=== PATIENT | female | born 2000 | race African-American/Black ===

== ENCOUNTER 2022-01-14 21:41 | Emergency (ER) | payer BC, MEDICAID, SELFPAY ==
[2022-01-14] VITALS (10 sets, daily range): BP systolic 104–114; BP diastolic 61–72; PULSE 71–101; RESP 13–27; TEMP 36.9; O2SAT 99–100
--- NOTE | 2022-01-14 21:46 | ECG_ITS ---
Measurements Intervals [place] Rate: 95 P: 79 WI: 127 QRS: 63 QRSD: 77 T: 47 QT: 332 QTc: 418 Interpretive Statements SINUS RHYTHM POSSIBLE LEFT ATRIAL ENLARGEMENT [-0.1mV P WAVE IN V1/V2] NO PREVIOUS ECG AVAILABLE FOR COMPARISON Electronically Signed On 01-15-2022 13:39:19 CDT by Catherine Lugo M.D.
--- NOTE | 2022-01-14 23:52 | ED.ARRPALP ---
HPI - Arrhythmia/Palpitations General Chief Complaint: Arrhythmia/Palpitations Stated Complaint: heart palpitations Time Seen by Provider: 01/14/22 23:29 Source: patient Mode of arrival: ambulatory History of Present Illness HPI narrative: 21-year-old female presents today with complaints of feeling her heart racing that started when she woke up this morning. Patient states she has a history of anxiety and has had palpitations in the past which normally only happen at night. Patient denies any chest pain, shortness of breath, pain radiating to the jaw or down the arm. Patient currently in school and finals are coming up next week. Patient denies any alleviating or aggravating factors when it comes to the feeling heart racing. Patient has been eating and drinking fairly well. Was seen last week at the [facility] doctors office and told she had a viral infection. She has been taking Flonase and TheraFlu as needed. Denies any usage of Sudafed. Related Data Allergies Allergy/AdvReac Type Severity Reaction Status Date / Time cefdinir Allergy Nausea and Verified 01/14/22 22:01 Vomiting Review of Systems Review of Systems: CONSTITUTIONAL: Denies fever, chills, or sweats. EYES: Denies visual changes, redness, or discharge. ENT: Denies rhinorrhea, congestion, sore throat, or otalgia. CARDIOVASCULAR: Feels her heart is racing. Denies chest pain or edema. RESPIRATORY: Denies cough or dyspnea. GASTROINTESTINAL: Denies abdominal pain, nausea, vomiting, or diarrhea. GENITOURINARY: Denies dysuria or hematuria. SKIN: Denies rash or itching. MUSCULOSKELETAL: Denies back pain, joint pain, or myalgia. NEUROLOGIC: Denies headache, numbness, dizziness, or weakness. PSYCHIATRIC: Denies anxiety or depression. Exam Narrative: GENERAL: Well-appearing, well-nourished, and in no acute distress. HEAD: Normocephalic, atraumatic. EYES: PERRLA and EOMI. ENT: Nares clear, no rhinorrhea or epistaxis. Mucous membranes moist. Oropharynx without tonsillar hypertrophy exudate or other lesions. Bilateral TMs pearly ramírez nonbulging NECK: Supple. No adenopathy or masses. No carotid bruits or JVD CHEST: Clear to auscultation. No respiratory distress. No wheezes rales or rhonchi HEART: Regular rate and rhythm. No murmur heard. Normal peripheral pulses. ABDOMEN: Soft, nontender, nondistended, normal active bowel sounds. EXTREMITIES: Normal range of motion. No edema. SKIN: Warm, dry, no rash. NEURO: No focal deficits. Alert and oriented x3. PSYCH: Normal mood and affect. Course Course Emergency Course: HPI as noted. Patient denies any pain or shortness of breath. Patient does have a history of anxiety. Will medicate with hydroxyzine and reevaluate patient. EKG shows sinus tachycardia. Reevaluation(s) Reevaluation #1: Patient with noted improvement after being medicated. Patient states she feels better and would like to go home. Date: 01/15/22 Time: 01:15 Vital Signs Vital signs: Vital Signs Temperature 36.9 C 01/14/22 21:58 Pulse Rate 101 H 01/14/22 21:58 Respiratory Rate 18 01/14/22 21:58 Blood Pressure 112/61 01/14/22 21:58 Pulse Oximetry 100 01/14/22 21:58 Temperature 36.9 C 01/14/22 21:58 Pulse Rate 72 01/15/22 01:48 Respiratory Rate 16 01/15/22 01:48 Blood Pressure 110/65 01/15/22 01:48 Pulse Oximetry 100 01/15/22 01:48 MDM - Arrhythmia/Palpitations MDM Narrative Medical decision making narrative: HPI as noted. Patient with noted improvement after being medicated. Patient with history of anxiety and meds have not been increased for over a year. Patient discharged home diagnosis anxiety plan follow-up with primary to reevaluate medications. Patient aware to return with any new or emergent symptoms. Differential Diagnosis Differential diagnosis: Likely palpitations, anxiety and sinus tachycardia Discharge Plan Discharge Clinical Impression: Anxiety Patient Disposition: Home, Self-Care Condition
[2022-01-15] VITALS (8 sets, daily range): BP systolic 104–113; BP diastolic 61–68; PULSE 72–83; RESP 13–21; O2SAT 95–100
[2022-01-15] MEDS: hydrOXYzine HCL 25 MG TABLET PO (00:10)
== END 2022-01-15 01:50 | disposition home or self-care (01) ==
PROVIDERS: Emergency Provider Nurse Practitioner Family
DX: F41.9 Anxiety disorder, unspecified (principal); R94.31 Abnormal electrocardiogram [ECG] [EKG]
CPT/HCPCS: 93005; 99283; A9270

== ENCOUNTER 2022-10-28 18:30 | Emergency (ER) | payer BC, MEDICAID, SELFPAY ==
--- NOTE | ~2022-10-28 | CT_ITS ---
EXAMINATION: CT abdomen pelvis wo con DATE: 10/28/2022 20:14 INDICATION: Right lower quadrant abdominal pain and intermittent nausea TECHNIQUE: Computed tomography (CT) of the abdomen and pelvis was performed without intravenous contr ast. Automated exposure control and iterative reconstruction technique were employed. The dose-length product was 224.64 mGy-cm. COMPARISON: None FINDINGS: Lung bases are clear. Heart size is normal. No pericardial or pleural effusion. Cholecystectomy clips the gallbladder fossa. Liver, spleen, pancreas, bilateral adrenal glands and kidneys are normal. Mod erate to large amount stool throughout the colon. Bowels appear normal with no abnormal wall thickeni ng or obstruction. The appendix is not visualized. No pericecal inflammatory change to suggest acute appendicitis. Bladder, anteverted uterus and bilateral adnexa are unremarkable. Minimal likely physi ologic free fluid in the cul-de-sac. Several phleboliths in the pelvis. Mild thoracolumbar dextrocurv ature. IMPRESSION: 1. Minimal likely physiologic free fluid in the pelvis. No other acute intra-abdominal/pelvic process . Reviewed, dictated and finalized at location A. RNING OFFICER IMPRESSION: 1. Minimal likely physiologic free fluid in the pelvis. No other acute intra-ab dominal/pelvic process.
[2022-10-28 18:57] VITALS: BP 142/71; PULSE 102; RESP 14; TEMP 36.3; O2SAT 98
[2022-10-28 19:32] LABS: Appearance Urine Clear (Clear); Bilirubin Urine Negative (Negative); Blood Urine Negative (Negative); Color Urine Yellow (Yellow); Glucose Urine UA Negative (Negative); Ketones Urine Negative (Negative); Leukocyte Esterase Ur Negative LEU/UL (Negative); Nitrate Urine Negative (Negative); Protein Urine Negative (Negative); Urobilinogen Urine 0.2 mg/dL (<2.0)
[2022-10-28 19:42] LABS: Bacteria Urine Trace /hpf; Mucus Urine Rare /lpf; Squamous Epithelial Cell Urine Moderate /hpf (Few); WBC Urine 0-3 /hpf
[2022-10-28 19:50] LABS: Add Urine Microscopic? YES
--- NOTE | 2022-10-28 19:50 | ED.GENADULT ---
HPI - General Adult General Chief complaint: Abdominal Pain Stated complaint: Abdominal pain Time Seen by Provider: 10/28/22 19:07 History of Present Illness HPI narrative: this is a 22-year-old female with a history of presenting to ED with right lower quadrant pain. The pain started at 3:00 a.m. and woke her from sleep. It is a stabbing pain in the right lower quadrant that radiates through her pelvic area, it was originally 10/10 in intensity and is now 6 out 10 intensity. She has not taken any pain medication. The pain is always there but its intensity waxes and wanes. She says this is felt like when she has had endometriosis flares in the past that she has not had 1 since she had an ablation was placed on Depo-Provera. The pain is worse with movement. She says that she has had some nausea but no fever, chills or diarrhea. Her gallbladder has been removed. She is not sexually active. She has a history of ovarian cysts in the past. Related Data Allergies Allergy/AdvReac Type Severity Reaction Status Date / Time cefdinir Allergy Nausea and Verified 01/14/22 22:01 Vomiting [facility] Past Medical History Medical History (Updated 10/28/22 @ 21:32 by Marvel Burgos MD) Endometriosis Ovarian cyst Surgical History Surgical History (Updated 10/28/22 @ 19:52 by Marvel Burgos MD) History of cholecystectomy Social History Social History (Updated 10/28/22 @ 19:52 by Marvel Burgos MD) Social History: Denies drugs tobacco or alcohol Exam Narrative: APPEARANCE: No apparent distress. Head: atraumatic. EYES: EOMI, NOSE: Atraumatic NECK: Trachea midline RESPIRATORY: No increased rate of breathing clear to auscultation bilaterally CARDIOVASCULAR: RRR, ABDOMINAL: mild tenderness in the right lower quadrant but no guarding or rebound. Abdomen is not distended. no CVA tenderness MUSCULOSKELETAl: No obvious deformities NEURO: Alert. Moving 4/4 extremities SKIN:: Warm, dry. Normal color PSYCHIATRIC: Normal affect Course Vital Signs Vital signs: Vital Signs Temperature 97.4 F L 10/28/22 18:57 Pulse Rate 102 H 10/28/22 18:57 Respiratory Rate 14 10/28/22 18:57 Blood Pressure 142/71 H 10/28/22 18:57 Pulse Oximetry 98 02/23 18:57 Oxygen Delivery Room Air 10/28/22 18:57 Temperature 97.4 F L 10/28/22 18:57 Pulse Rate 102 H 10/28/22 18:57 Respiratory Rate 14 10/28/22 18:57 Blood Pressure 142/71 H 10/28/22 18:57 Pulse Oximetry 98 10/28/22 18:57 Oxygen Delivery Room Air 10/28/22 18:57 Medical Decision Making [facility] Narrative Medical decision making narrative: -Presentation: 22-year-old female with history of ovarian cyst and endometriosis presenting to ED with right lower quadrant abdominal pain. CT abdomen pelvis without contrast has been ordered, lab work urinalysis will be obtained. -DDX includes but is not limited to: appendicitis, ovarian cyst, endometriosis, kidney stone, urinary tract infection, functional abdominal pain -Co-morbidities complicating care: history of ovarian cyst, endometriosis, multiple surgeries on the abdomen , iodine allergy -Social determinants of health: patient is in college -External Chart Review: non -Hx from independent Sources: Chase stephens, -Discussion of Management/Consultants: none -Independent interpretation of studies: CBC was within normal limits. Metabolic panel was unremarkable. Urinalysis did not indicate infection. CT abdomen pelvis showed no sign of appendicitis. There was some physiologic free fluid in the belly Which could be due to a ruptured cyst or endometriosis. Dx tests considered but not ordered: none -Procedures: None -Interventions: 2 L normal saline, 1000 mg Tylenol, 800 mg Motrin, 4 mg IV Zofran -Shared decision making / Disposition: after re-evaluating the patient her pain has slightly improved although she said she was having issues swallowing the 500 mg Tylenol pi
[2022-10-28] MEDS: IBUPROFEN 400 MG TABLET 800 MG PO (19:58)
[2022-10-28] MEDS: ACETAMINOPHEN 500 MG TABLET 1000 MG PO (19:58)
[2022-10-28 20:04] LABS: Basophils Absolute Auto 0.1 K/mm3 (0.0-0.1); Basophils Percent Auto 0.5 % (0.2-1.2); Eosinophils Absolute Auto 0.1 K/mm3 (0-0.3); Eosinophils Percent Auto 1.1 % (0-4.4); Hematocrit 38.5 % (37.0-47.0); Hemoglobin 12.5 g/dL (12.0-15.0); Immature Granulocyte Absolute 0.02 K/mm3 (0.00-0.031); Immature Granulocyte Percent A 0.2 % (0-0.5); Lymphocytes Absolute Auto 2.86 K/mm3 (0.9-3.2); Lymphocytes Percent Auto 31.2 % (18.3-44.2); Mean Corpuscular HGB Conc 32.5 g/dl (32-36); Mean Corpuscular Hemoglobin 27.2 pg (26-34); Mean Corpuscular Volume 83.9 fl (80-100); Mean Platelet Volume 9.5 fl (7.4-10.4); Monocytes Absolute Auto 0.7 K/mm3 (0.1-0.6); Monocytes Percent Auto 7.1 % (2.6-8.5); Neutrophils Absolute Auto 5.5 K/mm3 (1.3-6.7); Neutrophils Percent Auto 59.9 % (45.5-73.1); Nucleated Red Blood Cells Perc 0.2 % (0.0-0.2); Platelet Count Result 250 k/mm3 (150-375); Red Blood Count 4.59 M/mm3 (4.2-5.4); Red Cell Distribution Width 13.7 % (11.5-14.5); White Blood Count 9.2 K/mm3 (4.5-10.0)
[2022-10-28 20:18] LABS: Alanine Aminotransferase 34 U/L (6-35); Albumin Level 4.6 g/dL (3.5-5.1); Alkaline Phosphatase 51 U/L (38-126); Anion Gap 7 mmol/L (8-16); Aspartate Amino Transferase 31 U/L (14-36); Bilirubin,Total 0.6 mg/dL (0.2-1.3); Blood Urea Nitrogen 14 mg/dL (7-17); Carbon Dioxide 25 mmol/L (22-30); Chloride 104 mmol/L (98-107); Estimated CRCL calculation 82 ml/min; Estimated Glomerular Filt Rate > 60; Glucose 100 mg/dL (65-110); Lipase 54 U/L (23-300); Magnesium 1.8 mg/dL (1.6-2.3); Potassium 3.6 mmol/L (3.4-5.0); Sodium 136 mmol/L (137-145)
[2022-10-28] MEDS: SODIUM CHLORIDE 0.9% IV 2,000 ML 999 ML IV CONT (20:20)
[2022-10-28] MEDS: ONDANSETRON INJ 4 MG/2 ML VIAL IV PUSH (20:21)
--- NOTE | 2022-11-29 10:34 | PC.NURSE ---
LATE ENTRY This note is being entered to document information to the patient's record. The following information was omitted on [10/28/22], by [Lauren Barrera RN]. NS stopped at 2119.
== END 2022-10-28 22:19 | disposition home or self-care (01) ==
PROVIDERS: Emergency Medicine; Emergency Provider Emergency Medicine
DX: R10.31 Right lower quadrant pain (principal); N80.9 Endometriosis, unspecified
CPT/HCPCS: 36415; 74176; 80053; 81001; 81025; 83690; 83735; 85025; 96361; 96374; 99284; A9270; J2405; J7030

== ENCOUNTER 2023-01-07 20:38 | Observation (INO) | payer BC, MEDICAID, SELFPAY ==
[2023-01-07] VITALS (7 sets, daily range): BP systolic 114–134; BP diastolic 55–75; PULSE 57–81; RESP 16–23; TEMP 36.4; O2SAT 100
--- NOTE | ~2023-01-07 | XR_ITS ---
EXAMINATION: XR chest 2V Exam Date/Time: 01/07/2023 20:45 CDT HISTORY: chest pain/heaviness HX ASTHMA Comparison: None available. RESULT: Lines, tubes, and devices: Cholecystectomy clips. Lungs and pleura: Clear. Cardiomediastinal silhouette: Stable. Other: No acute osseous or upper abdominal finding. IMPRESSION: No acute cardiopulmonary process. Reviewed, dictated and finalized at location K.
--- NOTE | 2023-01-07 20:45 | ECG_ITS ---
Measurements Intervals [place] Rate: 78 P: 72 GA: 140 QRS: 77 QRSD: 76 T: 60 QT: 363 QTc: 414 Interpretive Statements SINUS RHYTHM WITH SINUS ARRHYTHMIA NORMAL ELECTROCARDIOGRAM COMPARED TO ECG 01/14/2022 21:53:46 NO DIFFERENT Electronically Signed On 01-08-2023 7:47:39 CDT by Robbie Em M.D.
[2023-01-07 21:03] LABS: Basophils Percent Auto 0.4 % (0.2-1.2); Eosinophils Absolute Auto 0.1 K/mm3 (0-0.3); Hematocrit 39.5 % (37.0-47.0); Hemoglobin 12.5 g/dL (12.0-15.0); Immature Granulocyte Absolute 0.02 K/mm3 (0.00-0.031); Immature Granulocyte Percent A 0.3 % (0-0.5); Lymphocytes Absolute Auto 3.34 K/mm3 (0.9-3.2); Lymphocytes Percent Auto 48.1 % (18.3-44.2); Mean Corpuscular HGB Conc 31.6 g/dl (32-36); Mean Corpuscular Hemoglobin 27.1 pg (26-34); Mean Corpuscular Volume 85.7 fl (80-100); Mean Platelet Volume 9.1 fl (7.4-10.4); Monocytes Absolute Auto 0.7 K/mm3 (0.1-0.6); Monocytes Percent Auto 9.5 % (2.6-8.5); Neutrophils Absolute Auto 2.8 K/mm3 (1.3-6.7); Neutrophils Percent Auto 39.7 % (45.5-73.1); Platelet Count Result 272 k/mm3 (150-375); Red Blood Count 4.61 M/mm3 (4.2-5.4); Red Cell Distribution Width 13.7 % (11.5-14.5); White Blood Count 6.9 K/mm3 (4.5-10.0)
[2023-01-07 21:13] LABS: Alanine Aminotransferase 19 U/L (6-35); Albumin Level 4.3 g/dL (3.5-5.1); Alkaline Phosphatase 41 U/L (38-126); Anion Gap 7 mmol/L (8-16); Aspartate Amino Transferase 24 U/L (14-36); Bilirubin,Total 0.7 mg/dL (0.2-1.3); Blood Urea Nitrogen 13 mg/dL (7-17); Calcium 8.9 mg/dL (8.4-10.2); Carbon Dioxide 27 mmol/L (22-30); Chloride 102 mmol/L (98-107); Estimated CRCL calculation 68 ml/min; Estimated Glomerular Filt Rate > 60; Glucose 94 mg/dL (65-110); Lipase 65 U/L (23-300); Potassium 3.6 mmol/L (3.4-5.0); Prothrombin Time 13.2 Seconds (11.1-14.7); Sodium 136 mmol/L (137-145)
[2023-01-07 21:14] LABS: Partial Thromboplastin Time 28.4 SECONDS (22.3-36.8)
[2023-01-07 21:25] LABS: Troponin I 0.026 ng/mL (0.000-0.034)
--- NOTE | 2023-01-07 22:21 | ED.ANXIETY ---
HPI - Anxiety General Chief Complaint: Anxiety Stated Complaint: chest pain, anxiety Time Seen by Provider: 01/07/23 21:40 History of Present Illness HPI narrative: 22-year-old female with a history of asthma here for evaluation of left sided chest pain and difficulty breathing over the past week. States that she initially attributed her symptoms to anxiety/asthma however today her symptoms worsened, particularly her chest pain, which prompted ED evaluation. No relief after use of her rescue inhaler. Describes the pain as a tightness, not particularly worse with exertion. Pain is better with leaning forward. She denies any leg swelling, fevers or chills, cough or congestion. No preceding illness. She does take control pills and cholesterol medicine d/t familial hypercholesterolemia. No suicidal or homicidal ideation. No illicit drug use. Related Data Allergies Allergy/AdvReac Type Severity Reaction Status Date / Time cefdinir Allergy Nausea and Verified 01/14/22 22:01 Vomiting Review of Systems Review of Systems: Gen: Denies fevers or chills Eyes: Denies eye pain or visual change ENT: Denies congestion Respiratory: Denies shortness of breath or cough CV: Denies chest pain or palpitations GI: Denies abdominal pain nausea, emesis or diarrhea : denies burning, urgency, frequency or hematuria Musculoskeletal: Denies back pain or muscle pain Neuro: Denies numbness, tingling, weakness or focal weakness Skin: Denies rash Except as documented, all other systems reviewed and negative PMFSH Past Medical History Medical History Endometriosis Ovarian cyst Surgical History Surgical History History of cholecystectomy Social History Social History (Updated 10/28/22 @ 19:52 by Marvel Burgos MD) Social History: Denies drugs tobacco or alcohol Exam Narrative: APPEARANCE: Well appearing, no pain in distress, well-nourished. Head: Normocephalic and atraumatic. EYES: PERRLA/EOMI, conjunctivae clear NOSE: No nasal drainage EARS: External ear normal in appearance THROAT: Oropharynx is clear. Mucous membranes are moist. NECK: Supple. No adenopathy, no masses. RESPIRATORY: Airway patent, respirations nonlabored. Clear to auscultation bilaterally, no rales, rhonchi, wheezing. CARDIOVASCULAR: Regular rate and rhythm without murmurs, rubs, or gallops. ABDOMINAL: Normoactive bowel sounds. Soft, nontender, nondistended. No rebound tenderness or guarding. MUSCULOSKELETAL: Extremities are warm and well-perfused. Moves all extremities well. No edema. NEURO: Normal speech. No focal neurologic deficits. SKIN: Skin is warm and dry. No rashes. PSYCHIATRIC: Normal affect/mood. Course Vital Signs Vital signs: Vital Signs Temperature 97.6 F 01/07/23 20:39 Pulse Rate 81 01/07/23 20:39 Respiratory Rate 18 01/07/23 20:39 Blood Pressure 134/73 01/07/23 20:39 Pulse Oximetry 100 01/07/23 20:39 Oxygen Delivery Room Air 01/07/23 20:39 Temperature 97.6 F 01/07/23 20:39 Pulse Rate 69 01/08/23 02:32 Respiratory Rate 23 H 01/08/23 02:32 Blood Pressure 115/80 01/08/23 02:32 Pulse Oximetry 100 01/08/23 02:32 Oxygen Delivery Room Air 01/07/23 20:39 MDM - Anxiety MDM Narrative Medical decision making narrative: 22-year-old female with history anxiety, asthma, familial high cholesterol, here for evaluation of left-sided chest tightness and shortness of breath. She is nontoxic in appearance and has normal vital signs, her heart and lungs are clear to auscultation. Her initial EKG is nonischemic, initial troponin was detectable at 0.026, repeat troponin is elevated at 0.038. Her EKG was repeated shows some nonsignificant ST elevation in the inferior leads but no reciprocal depression; there is some MI depression as well. PERC is 1 given history of control pills, the
[2023-01-07 22:44] LABS: D Dimer 0.42 ug/mL (<0.48)
[2023-01-07] MEDS: LORazepam (*CRX) 0.5 MG TABLET PO (22:44)
[2023-01-07 23:04] LABS: NT Pro B Type Natriuretic Pept < 20 pg/mL (19.9-100)
[2023-01-08] VITALS (54 sets, daily range): BP systolic 95–138; BP diastolic 47–89; PULSE 56–95; RESP 11–29; TEMP 36.5–36.7; O2SAT 95–100
[2023-01-08 00:59] LABS: Troponin I 0.038 ng/mL (0.000-0.034)
--- NOTE | 2023-01-08 01:08 | ECG_ITS ---
Measurements Intervals [place] Rate: 78 P: 71 [place]: 128 QRS: 77 QRSD: 89 T: 54 QT: 382 QTc: 437 Interpretive Statements SINUS RHYTHM WITH SINUS ARRHYTHMIA NORMAL ELECTROCARDIOGRAM COMPARED TO ECG 01/07/2023 20:49:47 NO SIGNIFICANT CHANGES Electronically Signed On 01-08-2023 7:50:40 CDT by Robbie Em M.D.
[2023-01-08 01:29] LABS: Appearance Urine Clear (Clear); Bacteria Urine Rare /hpf; Bilirubin Urine Negative (Negative); Blood Urine Trace (Negative); Color Urine Yellow (Yellow); Glucose Urine UA Negative (Negative); Ketones Urine 1+ mg/dL (Negative); Leukocyte Esterase Ur Negative LEU/UL (Negative); Nitrate Urine Negative (Negative); Non Pathogenic Casts 0-2; Protein Urine Negative (Negative); RBC Urine 0-2 /hpf (0-2); Specific Grav Ur 1.026 (1.001-1.035); Squamous Epithelial Cell Urine None seen /hpf (Few); WBC Urine 0-5 /hpf; pH Urine 6.5 (5.0-9.0)
[2023-01-08 01:34] LABS: Add Urine Microscopic? YES
[2023-01-08 01:38] LABS: Amphetamine Screen Urine Negative (Negative); Barbiturate Screen Urine Negative (Negative); Benzodiazepines Screen Urine Negative (Negative); Cannabinoid Screen Urine Negative (Negative); Cocaine Screen Urine Negative (Negative); Methadone Screen Urine Negative (Negative); Opiate Screen Urine Negative (Negative); Phencyclidine Screen Urine Negative (Negative)
[2023-01-08] MEDS: COLCHICINE 0.6 MG TABLET PO ×2 (01:43→09:19)
[2023-01-08] MEDS: IBUPROFEN 600 MG TABLET PO ×4 (01:43→19:41)
[2023-01-08 01:59] LABS: Influenza A QL RT-PCR Negative (Negative); Influenza B QL RT-PCR Negative (Negative); SARS-CoV-2 RNA PCR Negative (Negative)
[2023-01-08 02:05] LABS: CRP < 0.5 mg/dL (<1.0)
[2023-01-08 02:41] LABS: Erythrocyte Sedimentation Rate 12 mm/hr (0-20)
[2023-01-08] MEDS: ACETAMINOPHEN 325 MG TABLET 650 MG PO (03:24)
[2023-01-08 03:57] LABS: Magnesium 1.9 mg/dL (1.6-2.3)
[2023-01-08 04:29] LABS: Troponin I 0.035 ng/mL (0.000-0.034)
[2023-01-08 07:05] LABS: Troponin I 0.036 ng/mL (0.000-0.034)
--- NOTE | 2023-01-08 07:09 | PM.IMHP ---
H&P: HPI History of Present Illness Date/Time: 01/08/23 07:09 Chief Complaint: left-sided chest pain Narrative: Patient is a 22-year-old female with persistent asthma, familial hypercholesterolemia, endometriosis and ovarian cyst. She presented to the emergency department for evaluation of left-sided sternal chest pain clenching and stabbing in sensation and radiating to her left arm and between her shoulder blades. She reported the pain is worse with coughing, activity, and lying down. She reported associated fatigue, dizziness, hot and cold sensations as well as occasional night sweats for approximately 1 week but denies known fever. She had 1st attributed her symptoms to her asthma, potentially exacerbated by sliding candles in her room. She does not believe she has any known sick contacts however brother of her friend was diagnosed with Ebstein Barnes virus recently. Her exposure to her friend was 1 brief hug for few seconds, however. She does endorse a chronic cough with clear sputum. Daily Flovent and increased albuterol inhalers did not improve symptoms. She denied known fever, palpitations, lower extremity edema, abdominal pain, nausea, vomiting, diarrhea, flank pain or dysuria. In the emergency department her vital signs were temp 97.6? F, HR 81, RR 18, BP 134/73, SpO2 100% on room air. Lab work showed unremarkable CBC and CMP. ESR and CRP were not elevated and lipase was within normal limits. Troponin initially was 0.026, however repeat troponins are slightly increased with max 0.036. Initial EKG showed sinus rhythm/sinus arrhythmia without ischemic changes however repeat EKG as read by the emergency room department provider was concerning for slight ST change in inferior leads. Chest x-ray showed no acute process and CT abdomen and pelvis was unremarkable. She was treated with Ativan 0.5 mg IV x1, colchicine 0.6 mg p.o. x1 acetaminophen 650 mg x1 and ibuprofen 600 mg p.o. x1. She was referred for observation and further cardiac workup. Review of Systems Constitutional: Constitutional: Reports as per HPI Eyes: Eyes: Reports no additional eye complaints ENT: Reports system reviewed and no additional complaints, except as documented Cardiovascular: Cardiovascular: Reports as per HPI Respiratory: Respiratory: Reports as per HPI Gastrointestinal: Gastrointestinal: Reports no additional gastrointestinal complaints Genitourinary: Genitourinary: Reports no additional female genitourinary complaints and Reports other (Menstrual spotting and patient takes oral contraception.) Musculoskeletal: Musculoskeletal: Reports back pain Integumentary/Breasts: Skin/Breast: Reports system reviewed and no additional complaints, except as docu Neurologic: Reports system reviewed and no additional complaints, except as documented Psychiatric: Psychiatric: Reports no additional psychiatric complaints Endocrine: Endocrine: Reports no additional endocrine complaints Hematologic/Lymphatic: Hematologic/Lymphatic: Reports no additional hematologic/lymphatic complaints Allergic/Immunologic: Allergic/Immunologic: Reports no additional allergic/immunologic complaints [facility] Past Medical History Medical History (Updated 01/08/23 @ 10:54 by Janet Spencer APRN) Asthma Endometriosis Familial hypercholesteremia Neurofibromatosis Type 1 Ovarian cyst Surgical History Surgical History (Updated 01/08/23 @ 10:40 by Janet Spencer APRN) H/O exploratory laparotomy 2001 History of cholecystectomy Normal colonoscopy Summer 2021 for evaluation of possible IBD Family History Family History (Updated 01/08/23 @ 10:41 by Janet Spencer APRN) Father Heart disease Social History Social History (Updated 01/08/23 @ 10:42 by Janet Spencer APRN) Smoking status: Never smoker Alcohol intake: never Substance use: never Living arrangements: with family Occupation/Education: student Additional occupation/educa
--- NOTE | 2023-01-08 08:29 | PC.NURSE ---
Called pharmacy for 9 AM medications.
[2023-01-08] MEDS: ASPIRIN 81 MG ENTERIC TABLET PO (11:57)
[2023-01-08] MEDS: PANTOPRAZOLE 40 MG TABLET PO (11:58)
[2023-01-08] MEDS: SERTRALINE HCL 50 MG TABLET PO (11:58)
[2023-01-08] MEDS: ROSUVASTATIN 5 MG TABLET PO (11:59)
[2023-01-08 12:09] LABS: Cholesterol 183 mg/dL (0-200); HDL Direct 55 mg/dL; Triglycerides 60 mg/dL (<150)
[2023-01-08 12:19] LABS: LDL Cholesterol Direct 102 mg/dL
--- NOTE | 2023-01-08 14:44 | PC.NURSE ---
Spoke with Janet, nurse practitioner, at patient's request to restart home control. [employer] to re-order if pharmacy carries, OK to bring in home dose as well. No update on echo will occur at this time.
--- NOTE | 2023-01-08 15:09 | PC.NURSE ---
Report called to JAKE Fox
--- NOTE | 2023-01-08 16:21 | PC.NURSE ---
This patient, Dianne Miller, was admitted to IMU Room 203-01. Patient/family oriented to hospital policies and general routines including ID bracelet, bed and alarms, visiting hours, pain management, procedures, bathroom and other care routines, personal items, smoking policy, room service/diet, and visiting hours. Information on how to activate the Rapid Response Team has been discussed. Patient/Family are encouraged to report perceived risks to care and to ask questions if they do not understand what they are told or what they should do.
[2023-01-09] VITALS (8 sets, daily range): BP systolic 104–119; BP diastolic 50–71; PULSE 66–97; RESP 16–17; TEMP 36.6–37.2; O2SAT 99–100
--- NOTE | 2023-01-09 | ECHO_ITS ---
Patient Info Name: Dianne Miller Age: 22 years : 2000 Gender: Female Ht: 62 in Wt: 120 lbs BSA: 1.55 m2 HR: 69 bpm BP: 101 / 51 mmHg Heart Rhythm: Sinus Rhythm Technical Quality: Good Exam Date: 01/09/2023 7:39 AM Exam Location: [facility] Pulmonary Patient Status: Inpatient Admit Date: 01/08/2023 Staff Ordering Physician: Janet Spencer APRN Job Site Superintendent: Merline Sandoval RDCS Attending Provider: Gabby Monet DO Referring Physician: Johanna MARQUEZ; Exam Type: CA echo doppler color flow Study Info Indications - elevated troponin R07.9 - Chest pain, unspecified Complete two-dimensional, color flow and Doppler transthoracic echocardiogram is performed. Summary 1. Complete two-dimensional, color flow and Doppler transthoracic echocardiogram is performed. 2. Left ventricular chamber dimension is normal. 3. Left ventricular systolic function is normal, estimated at 55-60%. 4. There is no increased left ventricular wall thickness. 5. The left ventricular diastolic function is normal. 6. There is mild mitral valve regurgitation. 7. There is mild tricuspid valve regurgitation. Left Ventricle Left ventricular chamber dimension is normal. Left ventricular systolic function is normal, estimated at 55-60%. There is no increased left ventricular wall thickness. The left ventricular diastolic function is normal. Right Ventricle Right ventricular chamber dimension is normal. Right ventricular systolic function is normal. Left Atria Left atrial chamber dimension is normal. Right Atria Right atrial chamber dimension is normal. Atrial Septum Intact interatrial septum visualized by color flow imaging. Aortic Valve The aortic valve is trileaflet. There is no aortic valve sclerosis. There is no aortic valve stenosis. There is trace aortic valve regurgitation. Pulmonic Valve The pulmonic valve is normal. There is no pulmonic valve stenosis. There is trace pulmonic regurgitation. Mitral Valve The mitral valve has normal leaflets. There is no mitral valve stenosis. There is mild mitral valve regurgitation. Tricuspid Valve The tricuspid valve leaflets are normal. There is no significant tricuspid valve stenosis. There is mild tricuspid valve regurgitation. No pulmonary hypertension, estimated pulmonary arterial systolic pressure is 21 mmHg. Pericardium/Pleural The pericardium appears normal. There is no pericardial effusion. Inferior Vena Cava Normal inferior vena cava with >50% collapse upon inspiration consistent with normal right atrial pressure, 10 mmHg. Aorta The aortic root size at the sinus of Valsalva is normal. The prox ascending aorta size is normal. Left Ventricular Outflow Tract Name Value Normal LVOT 2D LVOT Diameter 2.0 cm LVOT Doppler LVOT Peak Gradient 2 mmHg LVOT Mean Gradient 1 mmHg LVOT VTI 15 cm LVOT VTI/AV VTI Ratio 0.6 LVOT Stroke Volume 47 ml LVOT CO
[2023-01-09] MEDS: IBUPROFEN 600 MG TABLET PO (05:06)
[2023-01-09] MEDS: PANTOPRAZOLE 40 MG TABLET PO (09:36)
[2023-01-09] MEDS: SERTRALINE HCL 50 MG TABLET PO (09:36)
[2023-01-09] MEDS: ASPIRIN 81 MG ENTERIC TABLET PO (09:36)
[2023-01-09] MEDS: ROSUVASTATIN 5 MG TABLET PO (09:36)
[2023-01-09] MEDS: COLCHICINE 0.6 MG TABLET PO (09:36)
--- NOTE | 2023-01-09 12:24 | PM.CNCAR ---
Assessment and Plan Assessment and plan (1) Chest pain: Code(s): R07.9 - Chest pain, unspecified Status: Acute Plan This is a 22-year-old woman with asthma otherwise healthy she does have familial hypercholesterolemia but no other coronary risk factors. She presents to the hospital with chest pain syndrome that appears to be noncardiac by her description. Her troponin levels are just barely out of normal range but in my opinion not concerning for acute coronary syndrome. I also do not really believe she has pericarditis this does not sound like pericardial pain to me and her electrocardiogram nor does her echocardiogram show any supporting evidence of pericarditis. At this point I would conclude that her symptoms are noncardiac and allow her to be discharged I do not believe she needs to be treated with colchicine Robbie Nails MD [facility] History of Present Illness History of Present Illness Consult date/time: 01/09/23 12:24 Reason For Visit: chest pain, elevated troponin Narrative: This is a 22-year-old woman with a history of asthma but otherwise no significant medical problems who is being seen at the request of the hospitalist because of chest pain and troponin levels that are out of normal range. The patient does not have any previous cardiac history and came to the hospital emergency room yesterday because of symptoms of intermittent episodes of chest discomfort that she describes as a left precordial pain sometimes radiating into the neck or interscapular region and sometimes into her left shoulder. The discomfort is not exertional in nature it was positional in nature worse with laying down and better with sitting up and left leaning forward. She came to the emergency room for evaluation of this. Her electrocardiograms were negative x2 tracings in the emergency room she has had a 4 troponin levels done which are just out of normal range at 0.034-0.036. She was presumed to be having pericarditis was started on colchicine and anti-inflammatory medication and admitted to the hospital. Echocardiogram has just been done this morning which is unremarkable. There is no detectable pericardial fluid. She is an active woman who does exercise regularly she works out and actually does kick boxing 2 or 3 times per week she does not have any chest pain that is triggered by exertion she is a college student studying criminal justice and again has a history of asthma denies any history of hypertension or diabetes she does have familial hypercholesterolemia with a LDL cholesterol level that she thinks was up close to 200. She does take rosuvastatin for this with a favorable response. All of this is managed by her PCP. Review of Systems Constitutional: Constitutional: Reports no additional constitutional complaints Eyes: Eyes: Reports no additional eye complaints ENT: Reports system reviewed and no additional complaints, except as documented Cardiovascular: Cardiovascular: Reports as per HPI Respiratory: Respiratory: Reports wheezing Gastrointestinal: Gastrointestinal: Reports no additional gastrointestinal complaints Musculoskeletal: Musculoskeletal: Reports no additional musculoskeletal complaints Integumentary/Breasts: Skin/Breast: Reports system reviewed and no additional complaints, except as docu Neurologic: Reports system reviewed and no additional complaints, except as documented Endocrine: Endocrine: Reports no additional endocrine complaints Hematologic/Lymphatic: Hematologic/Lymphatic: Reports no additional hematologic/lymphatic complaints Allergic/Immunologic: Allergic/Immunologic: Reports no additional allergic/immunologic complaints PMF Past Medical History Medical History (Updated 01/08/23 @ 10:54 by Janet Spencer APRN) Asthma Endometriosis Familial hypercholesteremia Neurofibromatosis Type 1 Ovarian cyst Surgical History Surgical History (Updated 01/08/23 @ 10:40 by Janet Patricio
--- NOTE | 2023-01-09 13:29 | PM.DS ---
DS: Admitting Diagnosis Discharge Date 01/09/2023 Admitting Diagnosis Chest pain Elevated troponin H/o familial hyperlipidemia H/O asthma DS: Discharge Diagnosis Discharge Diagnosis (1) Chest pain: Qualifiers: Chest pain type: other chest pain Qualified Code(s): R07.89 - Other chest pain Code(s): R07.9 - Chest pain, unspecified Status: Resolved Assessment and Plan: noncardiac related chest pain as pain is somewhat reproducible to palpation to left anterior chest and right posterior chest suggesting pain is musculoskeletal related. Treated with ibuprofen. Patient does have minimally elevated troponin (max 0.036) and history of familiar hypercholesterolemia and is currently on a statin medication. Of note, 2019 coronary calcium score 0; she was previously seen by a field contact person but not since 2019. Heart score 3. Cardiology consulted and appreciate recommendations. Echocardiogram normal and pericarditis unlikely per Cardiology. Ibuprofen and colchicine initiated in ED, but stopped on 01/09. A1c and lipid panel within normal limits. Started empiric aspirin 81 mg daily on admission. Continued rosuvastatin 5 mg p.o. daily. P.r.n. nitroglycerin and morphine. Telemetry NSR. EKG p.r.n. for chest pain. Patient has comorbidity of asthma but no wheezing noted on presentation. Continued Flovent 1 medications have been reconciled and p.r.n. albuterol MDI. Chest x-ray negative for acute disease. D-dimer is negative. Well's score low risk. Patient endorsed taking ibuprofen daily at home placing her at risk for GI disease as cause of symptoms. No epigastric pain noted on exam, however, she did later endorse symptoms suggesting regurgitation/acid reflux. She was treated with PPI and recommended to take OTC pepcid as needed. (2) Elevated troponin: Code(s): R77.8 - Other specified abnormalities of plasma proteins Status: Resolved Assessment and Plan: As above. (3) Asthma: Qualifiers: Asthma severity: unspecified severity Asthma complication type: uncomplicated Asthma persistence: persistent Qualified Code(s): J45.909 - Unspecified asthma, uncomplicated Code(s): J45.909 - Unspecified asthma, uncomplicated Status: Chronic Assessment and Plan: Chronic does not appear to be in acute exacerbation. Continue maintenance and rescue inhalers. (4) Familial hypercholesteremia: Code(s): E78.01 - Familial hypercholesterolemia Status: Chronic Assessment and Plan: Chronic, continue Crestor and check lipid panel. I have reviewed patient's portal from [facility] system located in [place]. And unable to find a prior lipid panel. Patient was able to show previous text from 2019 from her field contact person's office (Dr. Az Howard (sp?)). That showed a negative coronary calcium score in May of 2020. (5) GERD (gastroesophageal reflux disease): Qualifiers: Esophagitis presence: without esophagitis Qualified Code(s): K21.9 - Gastro-esophageal reflux disease without esophagitis Code(s): K21.9 - Gastro-esophageal reflux disease without esophagitis Status: Acute Assessment and Plan: Counseled on diet and PRN OTC pepcid DS: Summary Hospital Course Reason for hospitalization: chest pain Hospital Course: Patient is a 22-year-old female with persistent asthma, familial hypercholesterolemia, endometriosis and ovarian cyst.? She presented to the emergency department for evaluation of left-sided sternal chest pain clenching and stabbing in sensation and radiating to her left arm and between her shoulder blades.? She reported the pain is worse with coughing, activity, and lying down.? She had associated fatigue, dizziness, hot and cold sensations as well as occasional night sweats for approximately 1 week but denies known fever.? She had first attributed her symptoms to her asthma, potentially exacerbated
== END 2023-01-09 14:20 | disposition home or self-care (01) ==
LOC: ANHED 01-08 02:29 → ANHIMU 01-08 20:19
PROVIDERS: Emergency Medicine; Nurse Practitioner Family; Admitting Provider Internal Medicine; Emergency Provider Physician Assistant; Visit Provider Internal Medicine
DX: R07.9 Chest pain, unspecified (principal); R77.8 Other specified abnormalities of plasma proteins; J45.909 Unspecified asthma, uncomplicated; Z20.822 Contact with and (suspected) exposure to COVID-19; N80.9 Endometriosis, unspecified; N83.209 Unspecified ovarian cyst, unspecified side; M54.9 Dorsalgia, unspecified; Q85.01 Neurofibromatosis, type 1; F41.9 Anxiety disorder, unspecified; Z79.1 Long term (current) use of non-steroidal anti-inflammatories (NSAID); Z79.3 Long term (current) use of hormonal contraceptives; Z79.899 Other long term (current) drug therapy; Z83.42 Family history of familial hypercholesterolemia; R06.02 Shortness of breath
CPT/HCPCS: 36415; 71046; 80053; 80061; 80307; 81001; 81025; 83690; 83735; 83880; 84484; 85025; 85380; 85610; 85652; 85730; 86140; 87636; 93005; 93306; 99285; A9270; G0378

== ENCOUNTER 2023-10-18 03:03 | Emergency (ER) | payer BC, MEDICAID, SELFPAY ==
--- NOTE | ~2023-10-18 | CT_ITS ---
Non-contrast CT scan of the Abdomen and Pelvis Clinical indication: Abdominal pain Technique: 2.5 mm axial scans were obtained through the abdomen and pelvis without intravenous or or al contrast. Dose reduction technique was used on this scan by utilizing automated exposure control a nd iterative reconstruction technique. The dose-length product (DLP) was 229.17 mGy-cm. COMPARISON: 10/28/2022 Findings: Images through the lung bases reveal no abnormalities. There is no evidence of renal or ureteral calculi. The kidneys and the ureters are nondilated. The liver, spleen, pancreas, and adrenals appear normal. Cholecystectomy clips are present. There is no aortic aneurysm. There is no evidence of bowel obstruction. Images through the pelvis were performed. There is no evidence of ascites or lymphadenopathy. Urinary bladder unremarkable. No adnexal mass evident. Impression: No significant abnormality seen. Reviewed, dictated and finalized at [facility]. [employer] Impression: No significant abnormality seen.
[2023-10-18 03:06] VITALS: BP 124/43; PULSE 82; RESP 16; TEMP 36.3; O2SAT 100
[2023-10-18 04:26] LABS: Appearance Urine Cloudy (Clear); Bacteria Urine 1+ /hpf; Bilirubin Urine Negative (Negative); Blood Urine Negative (Negative); Color Urine Yellow (Yellow); Glucose Urine UA Negative (Negative); Ketones Urine 1+ mg/dL (Negative); Leukocyte Esterase Ur Negative LEU/UL (Negative); Nitrate Urine Negative (Negative); Non Pathogenic Casts 0-2; Protein Urine Trace mg/dL (Negative); Specific Grav Ur 1.034 (1.001-1.035); Squamous Epithelial Cell Urine Moderate /hpf (Few); WBC Urine 0-5 /hpf
[2023-10-18 04:27] LABS: Basophils Percent Auto 0.6 % (0.2-1.2); Eosinophils Absolute Auto 0.1 K/mm3 (0-0.3); Eosinophils Percent Auto 1.1 % (0-4.4); Hematocrit 40.5 % (37.0-47.0); Hemoglobin 13.1 g/dL (12.0-15.0); Immature Granulocyte Absolute 0.01 K/mm3 (0.00-0.031); Immature Granulocyte Percent A 0.1 % (0-0.5); Lymphocytes Absolute Auto 3.16 K/mm3 (0.9-3.2); Lymphocytes Percent Auto 44.5 % (18.3-44.2); Mean Corpuscular HGB Conc 32.3 g/dl (32-36); Mean Corpuscular Hemoglobin 27.3 pg (26-34); Mean Corpuscular Volume 84.4 fl (80-100); Mean Platelet Volume 9.1 fl (7.4-10.4); Monocytes Absolute Auto 0.8 K/mm3 (0.1-0.6); Monocytes Percent Auto 11.3 % (2.6-8.5); Neutrophils Percent Auto 42.4 % (45.5-73.1); Platelet Count Result 285 k/mm3 (150-375); Red Cell Distribution Width 13.2 % (11.5-14.5); White Blood Count 7.1 K/mm3 (4.5-10.0)
[2023-10-18 04:27] LABS: Add Urine Microscopic? YES
[2023-10-18 04:37] LABS: Alanine Aminotransferase 17 U/L (6-35); Albumin Level 4.2 g/dL (3.5-5.1); Alkaline Phosphatase 45 U/L (38-126); Anion Gap 6 mmol/L (8-16); Aspartate Amino Transferase 24 U/L (14-36); Bilirubin,Total 0.5 mg/dL (0.2-1.3); Blood Urea Nitrogen 16 mg/dL (7-17); Calcium 9.4 mg/dL (8.4-10.2); Carbon Dioxide 25 mmol/L (22-30); Chloride 106 mmol/L (98-107); Estimated CRCL calculation 75 ml/min; Estimated Glomerular Filt Rate > 60; Glucose 98 mg/dL (65-110); Lipase 58 U/L (23-300); Potassium 3.7 mmol/L (3.4-5.0); Sodium 137 mmol/L (137-145)
[2023-10-18 05:00] VITALS: BP 102/73; PULSE 81; RESP 18; O2SAT 99
--- NOTE | 2023-10-18 06:38 | ED.GENADULT ---
HPI - General Adult General Chief complaint: Abdominal Pain Stated complaint: abdominal pain, bloating Time Seen by Provider: 10/18/23 04:24 History of Present Illness HPI narrative: This is a 23-year-old female with history of ovarian cysts and endometriosis presenting with lower abdominal pain. Patient says she feels a heaviness in her lower abdomen. She has feels like something might be for falling out of her. She also has some discomfort in the right lower quadrant. She says this is similar to when she has had cysts in the past. Patient is also concerned she may have an STD because she has recently become sexually active and had sex once without a condom. She has no vaginal discharge or irritation. She does note some increased urinary frequency although she is drinking water. No fever chills nausea vomiting or diarrhea. Related Data Home Medications Medication Instructions Recorded Confirmed levonorgestrel 0.15 mg-ethinyl 1 tablet PO DAILY 01/08/23 01/08/23 estradiol 30 mcg tablets,3 mos pack(91) rosuvastatin 5 mg tablet 5 mg PO DAILY 01/08/23 01/08/23 sertraline 50 mg tablet 50 mg PO DAILY 01/08/23 01/08/23 Allergies Allergy/AdvReac Type Severity Reaction Status Date / Time cefdinir Allergy Nausea and Verified 10/18/23 03:52 Vomiting iodine Allergy Difficulty Verified 10/18/23 03:52 Breathing kiwi Allergy Swelling Verified 10/18/23 03:52 PMFSH Past Medical History Medical History Asthma Endometriosis Familial hypercholesteremia GERD (gastroesophageal reflux disease) Neurofibromatosis Type 1 Ovarian cyst Surgical History Surgical History H/O exploratory laparotomy 2001 History of cholecystectomy Normal colonoscopy Summer 2021 for evaluation of possible IBD Family History Family History Father Heart disease Social History Social History Smoking status: Never smoker Alcohol intake: never Substance use: never Lack of Transportation: No Lack of Food: Never True Current Housing: I Have Housing Concerned About Future Housing: No Difficulty Paying Gas/Electric Bills: No Difficulty Paying for Meds: No Currently Unemployed: No Education: High School Diploma/GED Difficulty w/ Childcare or Family Care: No Living arrangements: with family Occupation/Education: student Additional occupation/education comments: [employer] student Spiritual care concerns: No Exam Narrative: APPEARANCE: No apparent distress. Head: atraumatic. EYES: EOMI, NOSE: Atraumatic NECK: Trachea midline RESPIRATORY: No increased rate of breathing CARDIOVASCULAR: RRR, ABDOMINAL: Soft nontender no guarding or rebound, reported minor tenderness in the suprapubic area but I am unable to elicit grimace. MUSCULOSKELETAl: No obvious deformities NEURO: Alert. Moving 4/4 extremities SKIN:: Warm, dry. Normal color PSYCHIATRIC: Normal affect Course Vital Signs Vital signs: Vital Signs Temperature 97.4 F L 10/18/23 03:06 Pulse Rate 82 10/18/23 03:06 Respiratory Rate 16 10/18/23 03:06 Blood Pressure 124/43 L 10/18/23 03:06 Pulse Oximetry 100 10/18/23 03:06 Oxygen Delivery Room Air 10/18/23 03:06 Temperature 97.4 F L 10/18/23 03:06 Pulse Rate 81 10/18/23 05:00 Respiratory Rate 18 10/18/23 05:00 Blood Pressure 102/73 10/18/23 05:00 Pulse Oximetry 99 10/18/23 05:00 Oxygen Delivery Room Air 10/18/23 03:06 Medical Decision Making MDM Narrative Medical decision making narrative: -Course: 23-year-old female presenting lower abdominal pain. Physical exam is unremarkable. Laboratory studies include urine were negative. Patient was still very concerned and requested a CT scan and a pelvic exam and STD testing. pelvic
[2023-10-18 07:31] VITALS: BP 110/82; PULSE 65; RESP 18; O2SAT 100
[2023-10-18 08:22] LABS: Trichomonas Vag PCR NOT DETECTED (NOT DETECTE)
[2023-10-18 08:46] LABS: Chlamydia trachomatis NOT DETECTED (NOT DETECTE); Neisseria gonorrhoeae PCR NOT DETECTED (NOT DETECTE)
== END 2023-10-18 07:31 | disposition home or self-care (01) ==
PROVIDERS: Emergency Provider Emergency Medicine
DX: R10.30 Lower abdominal pain, unspecified (principal); J45.909 Unspecified asthma, uncomplicated; E78.01 Familial hypercholesterolemia; N80.9 Endometriosis, unspecified; K21.9 Gastro-esophageal reflux disease without esophagitis; Q85.01 Neurofibromatosis, type 1; Z90.49 Acquired absence of other specified parts of digestive tract
CPT/HCPCS: 36415; 74176; 80053; 81001; 81025; 83690; 85025; 87491; 87591; 87661; 99284